=== PATIENT | male | born 1995 | race Caucasian/White ===

== ENCOUNTER 2022-01-01 19:33 | Emergency (ER) | payer MEDICAID ==
[~2022-01-01] VITALS: Ht 180.3 cm; Wt 100.9 kg
[2022-01-01] MEDS ORDERED: ACETAMINOPHEN 325MG TABLET PO ONE (20:45)
[2022-01-02 02:20] VITALS: BP 145/86
== END 2022-01-02 02:26 | disposition home or self-care (01) ==
LOC: ER 19:33
DX: S52.125A Nondisplaced fracture of head of left radius, initial encounter for closed fracture (principal); S50.312A Abrasion of left elbow, initial encounter; R07.81 Pleurodynia; V00.841A Fall from standing electric scooter, initial encounter; Y93.89 Activity, other specified; Y92.488 Other paved roadways as the place of occurrence of the external cause
CPT/HCPCS: 71101; 73060; 73080; 73090; 73200; 99284

== ENCOUNTER 2022-01-02 15:42 | Emergency (ER) | payer MEDICAID ==
[~2022-01-02] VITALS: Ht 165.1 cm; Wt 89.0 kg
[2022-01-02 16:06] VITALS: BP 141/88
== END 2022-01-02 17:33 | disposition home or self-care (01) ==
LOC: ER 15:42
DX: S52.125A Nondisplaced fracture of head of left radius, initial encounter for closed fracture (principal); W19.XXXA Unspecified fall, initial encounter; Y93.89 Activity, other specified; Y92.89 Other specified places as the place of occurrence of the external cause
CPT/HCPCS: 29105; 99283